=== PATIENT | female | born 1940 | race Hispanic/Latino ===

== ENCOUNTER 2019-12-27 18:40 | Emergency (ER) | payer OTHER, SELFPAY ==
[2019-12-27 18:47] VITALS: BP 155/71; PULSE 101; RESP 18; TEMP 36.5; O2SAT 98
[2019-12-27 19:23] VITALS: BP 140/59; PULSE 95; RESP 12; O2SAT 98
[2019-12-27 19:42] LABS: Add Urine Microscopic? YES; Appearance Urine Cloudy (Clear); Bacteria Urine Trace /hpf; Bilirubin Urine Negative (Negative); Blood Urine 1+ (Negative); Color Urine Yellow (Yellow); Glucose Urine UA Negative (Negative); Ketones Urine Negative (Negative); Leukocyte Esterase Ur 3+ LEU/UL (Negative); Nitrate Urine Negative (Negative); Protein Urine 1+ mg/dL (Negative); Squamous Epithelial Cell Urine Occasional /hpf (Few); Urobilinogen Urine Negative mg/dL (<2.0); WBC Clumps Urine Present /HPF; WBC Urine >75 /hpf
--- NOTE | 2019-12-27 20:13 | ED.FEMALEGU ---
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 Time Seen by Provider: 12/27/19 18:50 History of Present Illness HPI Narrative: 79-year-old female presents emergency department with complaint of vaginal itching during urination over the past several days. Patient denies any dysuria, hematuria, frequency or urgency. She denies any fever or chills. She has a history of a total hysterectomy. She has been applying warm cloths to the area without relief. She is not currently sexually active. Related Data Allergies Allergy/AdvReac Type Severity Reaction Status Date / Time No Known Allergies Allergy Verified 12/27/19 18:52 Review of Systems Review of Systems: Narrative: CONSTITUTIONAL: Denies fever, chills, or sweats. CARDIOVASCULAR: Denies chest pain, palpitations, or edema. RESPIRATORY: Denies cough or dyspnea. GASTROINTESTINAL: Denies abdominal pain, nausea, vomiting, or diarrhea. GENITOURINARY: Denies dysuria, frequency, urgency or hematuria. Reports vaginal itching with urination. SKIN: Denies rash or itching. PSYCHIATRIC: Denies anxiety or depression. All systems reviewed & are unremarkable except as noted in HPI and below PMFSH Past Medical History Medical History (Updated 12/27/19 @ 20:25 by ASHLEY Paredes) Artificial pacemaker History of hypertension HLD (hyperlipidemia) Surgical History Surgical History (Updated 12/27/19 @ 20:17 by ASHLEY Paredes) H/O total hysterectomy History of appendectomy Social History Social History (Updated 12/27/19 @ 20:17 by ASHLEY Paredes) Smoking status: Never smoker Alcohol intake: never Substance use: never Gender identity (if verbalized by the patient): Female Exam Narrative: Exam Narrative: GENERAL: Well-appearing, well-nourished, and in no acute distress. HEAD: Normocephalic, atraumatic. EYES: Sclera anicteric ENT: Mucous membranes moist. CHEST: Clear to auscultation. No respiratory distress. HEART: Regular rate and rhythm. No murmur heard. ABDOMEN: Soft, nontender, nondistended, normal active bowel sounds. : External vaginal exam: no erythema or excoriation, no plaques or papules noted. no discharge. EXTREMITIES: Normal range of motion. No edema. SKIN: Warm, dry, no rash. NEURO: No focal deficits. Alert and oriented x3. PSYCH: Normal mood and affect. Course Vital Signs Vital signs: Vital Signs Temperature 36.5 C 12/27/19 18:47 Pulse Rate 101 H 12/27/19 18:47 Respiratory Rate 18 12/27/19 18:47 Blood Pressure 155/71 H 12/27/19 18:47 Pulse Oximetry 98 12/27/19 18:47 Temperature 36.5 C 12/27/19 18:47 Pulse Rate 95 12/27/19 19:23 Respiratory Rate 12 12/27/19 19:23 Blood Pressure 140/59 L 12/27/19 19:23 Pulse Oximetry 98 12/27/19 19:23 MDM - Female Genitourinary MDM Narrative Medical decision making narrative: Given pt symptoms of vaginal itching with urination and recent use of warm cloth to area, patient may have caused some contamination or this may be onset symptom of UTI itself. Pt is not sexually active and has a history of total hysterctomy without discharge. Will treat for UTI and instructed to try OTC vaginal lubricant for the itching/dryness she has been having. Differential Diagnosis Differential diagnosis: Likely urinary tract infection, vaginitis and other (lichens planus) Medical Records Attestation: I reviewed the patient's medical records. Lab Data Attestation: I reviewed the patient's lab results. Labs: Lab Results 12/27/19 Range/Units 19:26 Urine Color Yellow (Yellow) Urine Appearance Cloudy H (Clear) Urine pH 6.0 (5.0-9.0) Ur Specific [place] 1.010 (1.001-1.035) Urine Protein 1+ H (Negative) mg/dL Urine Glucose (UA) Negative (Negative) mg/dL Urine Ketones Negative (Negative) mg/dL Ur Blood (Man) 1+ H (Negative) Urine Nitrate Negative (Negative) Urine Bilirubin Negative (N
== END 2019-12-27 20:42 | disposition home or self-care (01) ==
PROVIDERS: Nurse Practitioner; PCP Internal Medicine Infectious Disease
DX: N39.0 Urinary tract infection, site not specified (principal); I10 Essential (primary) hypertension; E78.5 Hyperlipidemia, unspecified; Z95.0 Presence of cardiac pacemaker
CPT/HCPCS: 81001; 87077; 87086; 87088; 99283

== ENCOUNTER 2020-06-25 16:58 | Emergency (ER) | payer OTHER, SELFPAY ==
[2020-06-25 17:05] VITALS: BP 159/59; PULSE 104; RESP 18; TEMP 36.6; O2SAT 100
--- NOTE | 2020-06-25 17:33 | ED.ABDPAIN ---
HPI - Abdominal Pain General Chief Complaint: Urogenital-Female Stated Complaint: abd pain/uti Time Seen by Provider: 06/25/20 17:32 Source: patient Mode of arrival: ambulatory Limitations: no limitations History of Present Illness HPI narrative: Patient is a 80-year-old female who presents to emergency department for evaluation of suprapubic discomfort and burning with urination. Patient denies any fever vomiting or other complaints has had similar occurrence in the past that got better with antibiotics presents with family and lives with family and is otherwise been fine and has no other complaint Related Data Allergies Allergy/AdvReac Type Severity Reaction Status Date / Time No Known Allergies Allergy Verified 06/25/20 16:59 Review of Systems Review of Systems: All systems reviewed & are unremarkable except as noted in HPI and below PMFSH Past Medical History Medical History Artificial pacemaker History of hypertension HLD (hyperlipidemia) Surgical History Surgical History H/O total hysterectomy History of appendectomy Social History Social History Smoking status: Never smoker Alcohol intake: never Substance use: never Gender identity (if verbalized by the patient): Female Exam Narrative: Exam Narrative: GENERAL: Well-appearing, well-nourished, and in no acute distress. HEAD: Normocephalic, atraumatic. EYES: PERRLA and EOMI. ENT: Nares clear, no rhinorrhea or epistaxis. Mucous membranes moist. CHEST: Clear to auscultation. No respiratory distress. No wheezes rales or rhonchi HEART: Regular rate and rhythm. No murmur heard. Normal peripheral pulses. ABDOMEN: Soft, nontender, nondistended EXTREMITIES: Normal range of motion. No edema. SKIN: Warm, dry, no rash. NEURO: No focal deficits. Alert and oriented x3. Cranial nerves II through XII grossly intact PSYCH: Normal mood and affect. Course Course Emergency Course: patient in the room at this time in no distress resting comfortably afebrile nontoxic-appearing no distress will be referred back to primary care also noting they will follow with gynecology. Patient was hydrated in the emergency department and given IV antibiotic and felt appropriate for outpatient reevaluation family agrees with this plan Vital Signs Vital signs: Vital Signs Temperature 98 F 06/25/20 17:05 Pulse Rate 104 H 06/25/20 17:05 Respiratory Rate 18 06/25/20 17:05 Blood Pressure 159/59 H 06/25/20 17:05 Pulse Oximetry 100 06/25/20 17:05 Temperature 98 F 06/25/20 17:05 Pulse Rate 104 H 06/25/20 17:05 Respiratory Rate 18 06/25/20 17:05 Blood Pressure 159/59 H 06/25/20 17:05 Pulse Oximetry 100 06/25/20 17:05 MDM - Abdominal Pain MDM Narrative Medical decision making narrative: Patient with urinary tract infection dehydration felt appropriate for outpatient reevaluation will follow with primary care. Lab Data Result diagrams: 06/25/20 17:41 06/25/20 17:41 Labs: Lab Results 06/25/20 06/25/20 06/25/20 Range/Units 17:30 17:41 17:41 WBC 14.4 H (4.5-10.0) K/mm3 RBC 4.50 (4.2-5.4) M/mm3 Hgb 12.9 (12.0-15.0) g/dL Hct 39.2 (37.0-47.0) % MCV 87.1 (80-100) fl MCH 28.7 (26-34) pg MCHC 32.9 (32-36) g/dl RDW 14.4 (11.5-14.5) % Plt Count 242 (150-375) k/mm3 MPV 9.8 (7.4-10.4) fl Immature Gran % (Auto) 0.4 (0-0.5) % Neut % (Auto) 72.8 (45.5-73.1) % Lymph % (Auto) 20.0 (18.3-44.2) % [place] % (Auto) 5.9 (2.6-8.5) % Eos % (Auto) 0.6 (0-4.4) % Baso % (Auto) 0.3 (0.2-1.2) % Lymph # (Auto) 2.87 (0.9-3.2) K/mm3 [place] # (Auto) 0.9 H (0.1-0.6) K/mm3 Eos # (Auto) 0.1 (0-0.3) K/mm3 Baso # (Auto) 0.0 (0.0-0.1) K/mm3 Abs Immat Gran (auto) 0.06 H (0.00-0.03
[2020-06-25 17:43] LABS: Add Urine Microscopic? YES; Appearance Urine Cloudy (Clear); Bacteria Urine Trace /hpf; Bilirubin Urine Negative (Negative); Blood Urine 1+ (Negative); Color Urine Yellow (Yellow); Glucose Urine UA Negative (Negative); Ketones Urine Negative (Negative); Leukocyte Esterase Ur 3+ LEU/UL (Negative); Nitrate Urine Negative (Negative); Protein Urine 2+ mg/dL (Negative); RBC Urine 21-50 /hpf (0-2); Specific Grav Ur 1.011 (1.001-1.035); Squamous Epithelial Cell Urine Few /hpf (Few); Urobilinogen Urine Negative mg/dL (<2.0); WBC Urine >75 /hpf
[2020-06-25 17:49] LABS: Basophils Percent Auto 0.3 % (0.2-1.2); Eosinophils Absolute Auto 0.1 K/mm3 (0-0.3); Eosinophils Percent Auto 0.6 % (0-4.4); Hematocrit 39.2 % (37.0-47.0); Hemoglobin 12.9 g/dL (12.0-15.0); Immature Granulocyte Absolute 0.06 K/mm3 (0.00-0.031); Immature Granulocyte Percent A 0.4 % (0-0.5); Lymphocytes Absolute Auto 2.87 K/mm3 (0.9-3.2); Mean Corpuscular HGB Conc 32.9 g/dl (32-36); Mean Corpuscular Hemoglobin 28.7 pg (26-34); Mean Corpuscular Volume 87.1 fl (80-100); Mean Platelet Volume 9.8 fl (7.4-10.4); Monocytes Absolute Auto 0.9 K/mm3 (0.1-0.6); Monocytes Percent Auto 5.9 % (2.6-8.5); Neutrophils Absolute Auto 10.5 K/mm3 (1.3-6.7); Neutrophils Percent Auto 72.8 % (45.5-73.1); Platelet Count Result 242 k/mm3 (150-375); Red Cell Distribution Width 14.4 % (11.5-14.5); White Blood Count 14.4 K/mm3 (4.5-10.0)
[2020-06-25 18:09] LABS: Alanine Aminotransferase 38 U/L (4-35); Albumin Level 4.5 g/dL (3.5-5.1); Alkaline Phosphatase 218 U/L (38-126); Anion Gap 8 mmol/L (8-16); Aspartate Amino Transferase 52 U/L (14-36); Bilirubin,Total 0.6 mg/dL (0.2-1.3); Blood Urea Nitrogen 33 mg/dL (7-17); Calcium 9.7 mg/dL (8.4-10.2); Carbon Dioxide 29 mmol/L (22-30); Chloride 96 mmol/L (98-107); Estimated Glomerular Filt Rate 43; Glucose 174 mg/dL (65-105); Potassium 4.2 mmol/L (3.4-5.0); Sodium 133 mmol/L (137-145)
[2020-06-25] MEDS: SODIUM CHLORIDE 0.9% IV 1,000 ML 999 ML IV CONT (18:18)
[2020-06-25 18:59] VITALS: BP 136/55; PULSE 82; RESP 15; O2SAT 98
== END 2020-06-25 19:02 | disposition home or self-care (01) ==
PROVIDERS: Emergency Medicine Emergency Medical Services; Emergency Provider Emergency Medicine; PCP Internal Medicine Infectious Disease
DX: N39.0 Urinary tract infection, site not specified (principal); E78.5 Hyperlipidemia, unspecified; I10 Essential (primary) hypertension; Z95.0 Presence of cardiac pacemaker
CPT/HCPCS: 36415; 80053; 81001; 85025; 87086; 96365; 99284; J0696; J7030

== ENCOUNTER 2021-06-09 17:59 | Emergency (ER) | payer OTHER, SELFPAY ==
[2021-06-09 18:04] VITALS: BP 135/63; PULSE 111; RESP 20; TEMP 36.6; O2SAT 98
[2021-06-09 18:29] LABS: Add Urine Microscopic? YES; Appearance Urine Cloudy (Clear); Bacteria Urine Trace /hpf; Bilirubin Urine Negative (Negative); Blood Urine 2+ (Negative); Color Urine Yellow (Yellow); Glucose Urine UA Negative (Negative); Ketones Urine Negative (Negative); Leukocyte Esterase Ur 3+ LEU/UL (Negative); Nitrate Urine Negative (Negative); Protein Urine 2+ mg/dL (Negative); Squamous Epithelial Cell Urine Occasional /hpf (Few); Urobilinogen Urine Negative mg/dL (<2.0); WBC Urine >75 /hpf
[2021-06-09 20:15] VITALS: BP 139/56; PULSE 104; RESP 18; TEMP 37.2; O2SAT 98
--- NOTE | 2021-06-09 20:39 | ED.FEMALEGU ---
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 Reports irritation and itching as well. Denies fever, vomiting, abdominal pain, flank pain, hematuria. Related Data Allergies Allergy/AdvReac Type Severity Reaction Status Date / Time No Known Allergies Allergy Verified 06/09/21 20:17 Review of Systems Review of Systems: CONSTITUTIONAL: Denies fever GASTROINTESTINAL: Denies abdominal pain, nausea, vomiting GENITOURINARY: Reports dysuria. Denies hematuria. SKIN: Denies rash All systems reviewed & are unremarkable except as noted in HPI and below PMFSH Past Medical History Medical History (Updated 06/09/21 @ 20:43 by Chinyere Aponte PA-C) Artificial pacemaker History of hypertension HLD (hyperlipidemia) Surgical History Surgical History H/O total hysterectomy History of appendectomy Social History Social History Smoking status: Never smoker Alcohol intake: never Substance use: never Gender identity (if verbalized by the patient): Female Exam Narrative: GENERAL: Well-appearing, well-nourished, and in no acute distress. HEAD: Normocephalic, atraumatic. EYES: EOMI. CHEST: Clear to auscultation. No respiratory distress. No wheezes rales or rhonchi HEART: Regular rate and rhythm. No murmur heard. Normal peripheral pulses. ABDOMEN: Soft, nontender, nondistended, normal active bowel sounds. No CVA tenderness EXTREMITIES: Normal range of motion. No edema. SKIN: Warm, dry, no rash. NEURO: No focal deficits. Alert and oriented x3. PSYCH: Normal mood and affect FEMALE GENITAL: Mild redness in the vulvovaginal area without abnormal discharge Course Vital Signs Vital signs: Vital Signs Temperature 97.9 F 06/09/21 18:04 Pulse Rate 111 H 06/09/21 18:04 Respiratory Rate 20 06/09/21 18:04 Blood Pressure 135/63 06/09/21 18:04 Pulse Oximetry 98 06/09/21 18:04 Temperature 99.0 F 06/09/21 20:15 Pulse Rate 104 H 06/09/21 20:15 Respiratory Rate 18 06/09/21 20:15 Blood Pressure 139/56 L 06/09/21 20:15 Pulse Oximetry 98 06/09/21 20:15 MDM - Female Genitourinary MDM Narrative Medical decision making narrative: Patient presents the emergency department for urinary symptoms present over the last week. She is afebrile and nontoxic-appearing. Denies any abdominal pain or flank pain. UA is consistent with urinary tract infection. Patient does also report some vulvovaginal irritation and itching. Will be given dose of fluconazole. Will be started on antibiotics for acute cystitis. She is stable and felt appropriate for further outpatient evaluation. She was given warnings to return the ER Lab Data Attestation: I reviewed the patient's lab results. Labs: Lab Results 06/09/21 Range/Units 18:17 Urine Color Yellow (Yellow) Urine Appearance Cloudy H (Clear) Urine pH 6.0 (5.0-9.0) Ur Specific [place] 1.010 (1.001-1.035) Urine Protein 2+ H (Negative) mg/dL Urine Glucose (UA) Negative (Negative) mg/dL Urine Ketones Negative (Negative) mg/dL Ur Blood (Man) 2+ H (Negative) Urine Nitrate Negative (Negative) Urine Bilirubin Negative (Negative) Urine Urobilinogen Negative (<2.0) mg/dL Leukocyte Esterase Rfl 3+ H (Negative) RUSH/UL Urine RBC 11-20 H (0-2) /hpf Urine WBC >75 H /hpf Ur Squamous Epith Cells Occasional (Few) /hpf Urine Bacteria Trace /hpf Hyaline Casts 5-9 H (None) /lpf Urine Characteristics Cloudy Critical Care Time Critical Care Time Critical Care Time
[2021-06-09] MEDS: FLUCONAZOLE 150 MG TABLET PO (20:52)
== END 2021-06-09 20:58 | disposition home or self-care (01) ==
PROVIDERS: Emergency Medicine; Emergency Provider Emergency Medicine; PCP Internal Medicine Infectious Disease
DX: N30.00 Acute cystitis without hematuria (principal); I10 Essential (primary) hypertension; Z95.0 Presence of cardiac pacemaker; E78.5 Hyperlipidemia, unspecified
CPT/HCPCS: 81001; 87077; 87086; 87088; 87186; 99283; A9270